=== PATIENT | female | born 1960 | race Caucasian/White ===

== ENCOUNTER 2020-03-20 10:26 | Emergency (ER) | payer MEDICAID, SELFPAY ==
[~2020-03-20] VITALS: Ht 172.7 cm; Wt 68.0 kg
--- NOTE | 2020-03-20 11:00 | NUR ---
Pt walked in to ER with c/o nausea x 2 days. V/S stable, pt is afebrile. Placed in tent waiting for MD. No distress noted.
--- NOTE | 2020-03-20 11:10 | NUR ---
pt in tent, Dr. Johansen examining pt
[2020-03-20 11:17] VITALS: BP_SYST 139
--- NOTE | 2020-03-20 12:12 | NUR ---
Patient given written and verbal discharge instructions and verbalizes understanding. ER MD discussed with patient the results and treatment provided. Patient in stable condition. ID arm band removed. No prescriptions given. Patient educated on pain management and to follow up with PMD. Pain Scale 0. Opportunity for questions provided and answered. Medication side effect fact sheet provided.
[2020-03-20 12:13] VITALS: BP_SYST 139
== END 2020-03-20 12:12 | disposition home or self-care (01) ==
LOC: SED 10:26
DX: U07.1 COVID-19 (principal); M79.18 Myalgia, other site; R05 Cough; J45.909 Unspecified asthma, uncomplicated; K21.9 Gastro-esophageal reflux disease without esophagitis; Z90.49 Acquired absence of other specified parts of digestive tract; Z88.6 Allergy status to analgesic agent; Z88.8 Allergy status to other drugs, medicaments and biological substances
CPT/HCPCS: 99281